=== PATIENT | male | born 1990 | race Caucasian/White ===

== ENCOUNTER 2017-03-14 13:54 | Emergency (ER) | payer SELFPAY ==
[~2017-03-14] VITALS: Wt 80.0 kg
[2017-03-14] MEDS ORDERED: SOD CHLORIDE 0.9% 1,000 ML IV STA (16:56)
[2017-03-14] MEDS ORDERED: IBUPROFEN 600 MG TAB PO ONE (17:00)
[2017-03-14 17:07] LABS: BASOPHILS % 0.4 % (0.0-2.0); EOSINOPHILS # 0.1 10^3/ul (0.0-0.5); EOSINOPHILS % 1.3 % (0.0-7.0); HEMATOCRIT 40.9 % (42.0-52.0); LYMPHOCYTES # 2.1 10^3/ul (0.8-2.9); LYMPHOCYTES % 30.5 % (15.0-51.0); MEAN CORPUSCULAR HEMOGLOBIN 31.7 pg (29.0-33.0); MEAN CORPUSCULAR HGB CONC 36.7 g/dl (32.0-37.0); MEAN CORPUSCULAR VOLUME 86.5 fl (82.0-101.0); MEAN PLATELET VOLUME 11.6 fl (7.4-10.4); MONOCYTE # 0.5 10^3/ul (0.3-0.9); MONOCYTES % 6.9 % (0.0-11.0); NEUTROPHIL # 4.1 10^3/ul (1.6-7.5); NEUTROPHILS % 60.8 % (39.0-77.0); PLATELET COUNT 214 10^3/UL (140-415); RED BLOOD COUNT 4.73 10^6/ul (4.70-6.10); RED CELL DISTRIBUTION WIDTH 12.3 % (11.5-14.5); WHITE BLOOD COUNT 6.8 10^3/ul (4.8-10.8)
[2017-03-14 17:23] LABS: INR 1.09; PROTIME 14.3 Sec (11.9-14.9); PT RATIO 1.1
[2017-03-14 17:25] LABS: ALANINE AMINOTRANSFERASE 35 IU/L (13-69); ALBUMIN 4.7 g/dl (3.3-4.9); ALBUMIN/GLOBULIN RATIO 1.42; ALKALINE PHOSPHATASE 85 IU/L (42-121); ANION GAP 14 (8-16); ASPARTATE AMINO TRANSFERASE 28 IU/L (15-46); BILIRUBIN,INDIRECT 0.4 mg/dl (0-1.1); BILIRUBIN,TOTAL 0.4 mg/dl (0.2-1.3); BLOOD UREA NITROGEN 17 mg/dl (7-20); CALCIUM 9.1 mg/dl (8.4-10.2); CARBON DIOXIDE 30 mmol/L (21-31); CHLORIDE 103 mmol/L (97-110); CREATINE KINASE 303 IU/L (23-200); CREATININE 1.11 mg/dl (0.61-1.24); GLUCOSE 91 mg/dl (70-220); POTASSIUM 3.8 mmol/L (3.5-5.1); SODIUM 143 mmol/L (135-144)
[2017-03-14 17:38] LABS: B-TYPE NATRIURETIC PEPTIDE 39 PG/ML (0-125)
[2017-03-14 17:42] LABS: CK-MB 2.77 ng/ml (0.0-2.4); TROPONIN-I < 0.012 ng/ml (0.00-0.12)
[2017-03-14] MEDS ORDERED: KETOROLAC 30 MG INJ IV STA (17:50)
--- NOTE | 2017-03-14 18:02 | RADRPT ---
PROCEDURE: XR Chest. CLINICAL INDICATION: Back pain. TECHNIQUE: Single frontal view of the chest was obtained. COMPARISON: None FINDINGS: The cardiomediastinal silhouette is normal in size. No focal consolidation is seen. No pleural effusion is seen. No definite pneumothorax. No acute osseous abnormality. IMPRESSION: No radiographic evidence of an acute cardiopulmonary process. RPTAT: EE Sharri Rolon Physician Date Time Electronically viewed and signed by Sharri Rolon Physician on 03/14/2017 18:02 /
--- NOTE | 2017-03-14 18:05 | RADRPT ---
PROCEDURE: XR Lumbar Spine. CLINICAL INDICATION: back pain TECHNIQUE: 3 views of the lumbar spine were obtained. COMPARISON: No prior studies are available for comparison. FINDINGS: Alignment is anatomic. Vertebral body and disk space heights are preserved. No fracture or signifi cant listhesis is seen. No lytic or blastic lesion. No visualized soft tissue abnormality. IMPRESSION: No definite acute bony abnormality. RPTAT: HLBE Selam Doe Physician Date Time Electronically viewed and signed by Selam Doe Physician on 03/14/2017 18:05 LE/
--- NOTE | 2017-03-14 19:15 | ERD ---
ER Documentation Chief Complaint Chief Complaint back pain HPI This is a very pleasant 27-year-old male with no past medical history that presents to the emergency department complaining of low back pain has been present for several weeks. The patient states he works for [employer] and occurred after he lifted a heavy box. He heard a "cracking sensation" in the lower spine but was able to ambulate did not fall to the ground. He indicates the pain has been intermittent and is exacerbated when he twists or lifts objects. He denies any saddle anesthesia. He denies any fever shaking or chills. He denies any chest pain or pressure that radiates to the neck arm back or jaw. He denies any changes in his bladder or bowel frequency. He did not take any analgesic medication prior to arrival. He does not smoke tobacco. He denies illicit drug use. ROS All systems reviewed and are negative except as per history of present illness. Allergies Allergies: Coded Allergies: No Known Allergy (Unverified , 03/14/17) PMhx/Soc Medical and Surgical Hx: pt denies Medical Hx, pt denies Surgical Hx Physical Exam Vitals Vital Signs Date Time Temp Pulse Resp B/P Pulse Ox O2 Delivery O2 Flow Rate FiO2 03/14/17 17:06 68 20 134/84 99 Nasal Cannula 2.0 03/14/17 17:00 Nasal Cannula 2 03/14/17 13:57 98.1 71 18 137/78 99 Physical Exam Constitutional:Well-developed. Well-nourished. HEENT:Normocephalic. Atraumatic.Pupils were equal round reactive to light. Moist mucous membranes.No tonsillar exudates. Neck: No nuchal rigidity. No lymphadenopathy. No posterior cervical spine tenderness or step-offs. Respiratory: Not using accessory muscles of respiration.Lungs were clear to auscultation bilaterally. No rhonchi. No rales. No wheezing. Cardiovascular: Regular rate regular rhythm.No murmurs. No rubs were appreciated.S1, S2 normal. Distal pulses are palpable 2+ bilaterally. Left reproducible chest wall tenderness with no crepitus no ecchymosis no flail chest. GI: Abdomen was soft. Nontender. Non Distended. No pulsatile abdominal masses or bruits. No rebound. No guarding. Bowel sounds were present and normal. Muscle skeletal: Full range of motion of both the upper and lower extremities bilaterally.Normal muscle tone.No assymetrical calf tenderness or swelling. Tenderness over the left paralumbar tenderness over L4-L5 with no tenderness with palpation or percussion of the thoracic or lumbar spinous processes Skin: No petechia, no purpura. No lesions on the palms or the soles of the feet. No maculopapular rash. NEURO: Patient was alert, awake, orientated x3.No facial droop. Gait observed and normal with no ataxia.Speech had regular rate and rhythm. No focal neurological deficits. Result Diagram: 03/14/17164903/14/171649 Results 24 hrs Laboratory Tests Test 03/14/17 16:50 White Blood Count 6.810^3/ul Red Blood Count 4.7310^6/ul Hemoglobin 15.0g/dl Hematocrit 40.9% Mean Corpuscular Volume 86.5fl Mean Corpuscular Hemoglobin 31.7pg Mean Corpuscular Hemoglobin Concent 36.7g/dl Red Cell Distribution Width 12.3% Platelet Count 14883^3/UL Mean Platelet Volume 11.6fl Neutrophils % 60.8% Lymphocytes % 30.5% Monocytes % 6.9% Eosinophils % 1.3% Basophils % 0.4% Nucleated Red Blood Cells % 0.0/100WBC Neutrophils # 4.110^3/ul Lymphocytes # 2.110^3/ul Monocytes # 0.510^3/ul Eosinophils # 0.110^3/ul Basophils # 0.010^3/ul Nucleated Red Blood Cells # 0.010^3/ul Prothrombin Time 14.3Sec Prothrombin Time Ratio 1.1 INR International Normalized Ratio 1.09 Activated Partial Thromboplast Time 34.0Sec Sodium Level 143mmol/L Potassium Level 3.8mmol/L Chloride Level 103mmol/L Carbon Dioxide Level 30mmol/L Anion Gap 14 Blood Urea Nitrogen 17mg/dl Creatinine 1.11mg/dl Glucose Level 91mg/dl Calcium Level 9.1mg/dl Total Bilirubin 0.4mg/dl Direct Bilirubin 0.00mg/dl Indirect Bilirubin 0.4mg/dl Aspartate Amino Transf (AST/SGOT) 28IU/L Alanine Aminotransferase (ALT/SGPT) 35IU/L Alkaline Phosphatase 85IU/L Creatine Kinase 303IU/L Creatine Kinase Index 0.9 Creatinine Kinase MB (Mass) 2.77ng/ml Troponin I < 0.012ng/ml B-Type Natriuretic Peptide 39PG/ML Total Protein 8.0g/dl Albumin 4.7g/dl Globulin 3.30g/dl Albumin/Globulin Ratio 1.42 Current Medications Medications (Trade) Dose Ordered Sig/Mary Anne Route PRN Reason Start Time Stop Time Status Last Admin Dose Admin Ibuprofen 600 mg 600 mg ONCE ONCE PO 03/14/17 17:00 03/14/17 17:01 DC 03/14/17 16:41 Sodium Chloride (NS) 1,000 ml @ 1,000 mls/hr Q1H STAT IV 03/14/17 16:56 03/14/17 17:55 DC 03/14/17 17:21 Ketorolac Tromethamine (Toradol) 30 mg ONCE STAT IV 03/14/17 17:50 03/14/17 18:27 DC Procedures/MDM The patient presented to the emergency department with back pain. My differential diagnosis included but was not limited to spinal origins of the pain such as fracture, osteomyelitis, epidural abscess, neoplasm, spondylolishtesis, discogenic, cauda equina syndrome or musculoligamentous. Nonspinal causes such as AAA, upper UTI, renal colic, aortic dissection, abdominal neoplasm were also considered as an etiology into their pain. I obtained radiographic imaging of the patient's lumbar spine which showed no acute fractures or dislocations. I did feel that this was muscle skeletal in origin with no signs of cord compression syndrome. On physical exam the patient did have reproducible chest wall tenderness and therefore I obtained an EKG. 12 Lead EKG tracing ordered and reviewed by myself showed: Normal sinus rhythm of 65 bpm and no arrhythmia. AK interval normal. QRS duration normal. There is a concave upstroke in anterior lateral leads V2 through V6 with no ST segment depression. T waves were inverted in the inferior leads III. No ST segment depression. This EKG was taken at 1645. Went to reevaluate the patient and again he denied any active chest pain or pressure that radiates to the neck arm back or jaw. I discussed the findings of the EKG with the on-call master automotive technician Dr. Armendariz she was also in agreement that the patient did not meet criteria for cardiac seed analysis laboratory assistant at this time despite the EKG reading an acute SC. This appeared to be an early benign repolarization. The patient's troponin was negative. The patient felt comfortable being discharged home will be sent home with NSAIDs Departure Diagnosis: Primary Impression: Low back sprain Encounter type: initial encounter Qualified Code: S33.9XXA - Sprain of low back, initial encounter Additional Impression: Costochondritis, acute Condition: Fair KEVIN BOLTON Mar 14, 2017 19:15
[2017-03-14] MEDS ORDERED: NAPR-260 PO (19:18)
[2017-03-14 19:57] VITALS: BP 114/72; PULSE 82; RESP 16
== END 2017-03-14 19:58 | disposition home or self-care (01) ==
LOC: FTE 13:54
DX: S33.9XXA Sprain of unspecified parts of lumbar spine and pelvis, initial encounter (principal); R06.02 Shortness of breath; X50.0XXA Overexertion from strenuous movement or load, initial encounter; Y92.9 Unspecified place or not applicable
CPT/HCPCS: 71010; 72100; 80053; 82550; 82553; 83880; 84484; 85025; 85610; 85730; 93005; 96361; 96374; 99285; J1885; J7030